=== PATIENT | male | born 2000 | race Caucasian/White ===

== ENCOUNTER 2022-05-08 10:14 | Emergency (ER) | payer BC, SELFPAY ==
[2022-05-08 10:42] VITALS: BP 93/63; PULSE 70; RESP 18; TEMP 36.5; O2SAT 100; BMI 23.0
--- NOTE | 2022-05-08 11:04 | ED_ITS ---
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 He has had a cyst in his upper buttock cleft for last couple of days he had it drained at [facility] today. He reports that there was some material that was obtained out of the cyst, continues to be tender. He was sent to the ED. patient denies fever chills rigors he has had a good amount of discomfort in that area. Not tried any antibiotics, or hot baths or soaks. He has not had a problem pilonidal cyst in the past Related Data Previous Rx's Medication Instructions Recorded amoxicillin 875 mg-potassium 1 tab PO BID #14 tabs 05/08/22 clavulanate 125 mg tablet hydrocodone 7.5 mg-acetaminophen 1 tab PO Q6-8H PRN pain #14 tabs 05/08/22 325 mg tablet Allergies Allergy/AdvReac Type Severity Reaction Status Date / Time No Known Drug Allergies Allergy Verified 05/08/22 10:40 Review of Systems Status of ROS: Reports: 6 or more systems reviewed and unremarkable except as noted in History and below [facility] Social History Smoking Status: Never smoker Do you use any of these nicotine containing products: None Second hand tobacco smoke exposure: No How often do you have a drink containing alcohol: never How often do you have six or more drinks on one occasion: Never AUDIT-C Alcohol total score: 0 Non-prescribed substance use: denies use service: No Exam Narrative: Exam Narrative: Objective: The patient has apart and opened pilonidal cyst. Without significant fluctuance, but he does have generalized tenderness. No area of some sprague cellulitic spread of infection. He is mobile and ambulatory. Const: Vital Signs, click to edit/add: Vital Signs - 24 hr 05/08/22 10:42 Temperature 97.7 F Pulse Rate [Pulse Oximeter] 70 Respiratory Rate 18 Blood Pressure [Ri ght Upper Arm] 93/63 Pulse Oximetry 100 Oxygen Delivery Me thod Room Air Course Vital Signs Vital signs: Initial Vital Signs Temperature 97.7 F 05/08/22 10:42 Temperature Source Temporal Artery Scan 05/08/22 10:42 Pulse Rate 70 05/08/22 10:42 Pulse Rhythm 05/08/22 10:42 Respiratory Rate 18 05/08/22 10:42 Blood Pressure 93/63 05/08/22 10:42 Blood Pressure Mean 73 05/08/22 10:42 Blood Pressure Position Standing 05/08/22 10:42 Pulse Oximetry 100 05/08/22 10:42 Oxygen Delivery Method 05/08/22 10:42 Vital Signs Temperature 97.7 F 05/08/22 10:42 Pulse Rate 70 05/08/22 10:42 Respiratory Rate 18 05/08/22 10:42 Blood Pressure 93/63 05/08/22 10:42 Pulse Oximetry 100 05/08/22 10:42 Oxygen Delivery Method 05/08/22 10:42 Temperature 97.7 F 05/08/22 10:42 Pulse Rate 70 05/08/22 10:42 Respiratory Rate 18 05/08/22 10:42 Blood Pressure 93/63 05/08/22 10:42 Pulse Oximetry 100 05/08/22 10:42 Oxygen Delivery Method 05/08/22 10:42 Medical Decision Making MDM Narrative Medical decision making narrative: The patient has a pilonidal cyst that has been opened and apparently some fluid was drained. At this point I do not feel lot of fluctuance or area to drain at this point. I would recommend antibiotics will given Rocephin 1 g IM we will also give him [place] for pain, and also start Augmentin 875 b.i.d. x7 days. Note for off school for 2 days, will follow-up with our surgical team for reassessment. If he has increasing pain or problem they can return to the ED sooner Discharge Plan Discharge Clinical Impression: Pilonidal cyst Patient Disposition: Home, Self-Care Condition: Stable Additional Instructions: Off school for 2 days, light activity, [place] as needed for pain, may use Advil as well, will use Augmentin twice a day for antibiotic which he can start today. No written for school. Follow up with General surgery in 2 days for reassessment, hot soapy baths 2 to 3 times a day for the next several days Activity Level: Light activity Discharge Diet: Regular Prescriptions: New amoxicillin-pot clavulanate 875-125 mg tablet 1 tab PO BID Qty: 14 0RF hydrocodone-acetaminophen 7.5-325 mg tablet 1 tab PO Q6-8H PRN (Reason: pain) Qty: 14 0RF Stand Alone Forms: MyHealth Info Instructions
[2022-05-08] MEDS: cefTRIAXone 1 GM VIAL IM (11:46)
[2022-05-08] MEDS: LIDOCAINE 1% 5 ml (pf) 5 ML VIAL 2.1 ML IM (11:47)
[2022-05-08] MEDS: HYDROCODONE/ACETAMIN 7.5-325 TABLET 1 TAB PO (11:47)
== END 2022-05-08 11:59 | disposition home or self-care (01) ==
PROVIDERS: Emergency Provider Family Medicine
DX: L05.91 Pilonidal cyst without abscess (principal)
CPT/HCPCS: 96372; 99283; 99284; A9270; J0696

== ENCOUNTER 2024-10-04 11:00 | Outpatient (RCR) | payer OTHER, SELFPAY | END 2024-10-20 13:33 | disposition home or self-care (01) | PROVIDERS: PCP Family Medicine; Visit Provider Orthopaedic Surgery Sports Medicine | DX: Z98.890 Other specified postprocedural states (principal); M25.569 Pain in unspecified knee; M62.81 Muscle weakness (generalized); Z51.89 Encounter for other specified aftercare | CPT/HCPCS: 97110; 97140; 97161 ==